=== PATIENT | female | born 1970 | race Caucasian/White ===

== ENCOUNTER 2017-10-03 09:26 | Emergency (ER) | payer SELFPAY, MEDICAID | END 2017-10-03 13:05 | disposition left against medical advice (07) | LOC: FTE 09:26 | DX: Z53.21 Procedure and treatment not carried out due to patient leaving prior to being seen by health care provider (principal) ==

== ENCOUNTER 2017-10-28 13:57 | Emergency (ER) | payer MEDICAID | END 2017-10-28 18:53 | disposition home or self-care (01) | LOC: FTE 13:57 | DX: L03.032 Cellulitis of left toe (principal); M79.674 Pain in right toe(s); L03.031 Cellulitis of right toe; Z85.3 Personal history of malignant neoplasm of breast | CPT/HCPCS: 99284; Z7502 ==

== ENCOUNTER 2017-11-14 20:51 | Emergency (ER) | payer MEDICAID ==
[2017-11-14 21:52] LABS: ADD UMIC YES; UR ASCORBIC ACID NEGATIVE (NEGATIVE); UR BILIRUBIN (Dip) NEGATIVE (NEGATIVE); UR BLOOD (Dip) 1+ mg/dL (NEGATIVE); UR CLARITY SLIGHTLY CLOUDY (CLEAR); UR COLOR RED (YELLOW); UR GLUCOSE (Dip) NEGATIVE (NEGATIVE); UR KETONES (Dip) NEGATIVE (NEGATIVE); UR LEUKOCYTE ESTERASE (Dip) TRACE Leu/ul (NEGATIVE); UR NITRITE (Dip) NEGATIVE (NEGATIVE); UR RBC 0 /HPF (0-5); UR SPECIFIC GRAVITY (Dip) 1.001 (1.003-1.030); UR SQUAMOUS EPITHELIAL CELL FEW /HPF (FEW); UR TOTAL PROTEIN (Dip) NEGATIVE (NEGATIVE); UR UROBILINOGEN (Dip) NEGATIVE (NEGATIVE); UR WBC 1 /HPF (0-5)
[2017-11-14 22:11] LABS: ADD MAN DIFF? NO
[2017-11-14 22:20] LABS: ABNORMAL IP MESSAGE 1; BASOPHILS % 0.4 % (0.0-2.0); EOSINOPHILS # 0.1 10^3/ul (0.0-0.5); HEMOGLOBIN 11.6 g/dl (12.0-16.0); LYMPHOCYTES # 0.4 10^3/ul (0.8-2.9); LYMPHOCYTES % 5.2 % (15.0-51.0); MEAN CORPUSCULAR HEMOGLOBIN 31.6 pg (29.0-33.0); MEAN CORPUSCULAR HGB CONC 35.2 g/dl (32.0-37.0); MEAN CORPUSCULAR VOLUME 89.9 fl (82.0-101.0); MONOCYTE # 0.5 10^3/ul (0.3-0.9); MONOCYTES % 7.1 % (0.0-11.0); NEUTROPHIL # 5.8 10^3/ul (1.6-7.5); PLATELET COUNT 191 10^3/UL (140-415); RED BLOOD COUNT 3.67 10^6/ul (4.20-5.40); RED CELL DISTRIBUTION WIDTH 12.1 % (11.5-14.5)
[2017-11-14 22:20] LABS: WHITE BLOOD COUNT 6.8 10^3/ul (4.8-10.8)
[2017-11-14] MEDS: SODIUM CHLORIDE 0.9% 1L BAG IV* (22:23)
[2017-11-14] MEDS: KETOROLAC 30 MG INJ IV (22:24)
[2017-11-14 22:34] LABS: POSITIVE DIFF @See below
[2017-11-14 22:39] LABS: INR 0.91; PROTIME 12.3 Sec (11.9-14.9)
[2017-11-14 22:40] LABS: PARTIAL THROMBOPLASTIN TIME 28.7 Sec (25.0-35.0)
[2017-11-14 22:41] LABS: ALANINE AMINOTRANSFERASE 101 IU/L (13-69); ALBUMIN 4.5 g/dl (3.3-4.9); ALBUMIN/GLOBULIN RATIO 1.45; ALKALINE PHOSPHATASE 119 IU/L (42-121); AMYLASE 73 U/L (11-123); ANION GAP 16 (8-16); ASPARTATE AMINO TRANSFERASE 99 IU/L (15-46); BILIRUBIN,INDIRECT 0.2 mg/dl (0-1.1); BILIRUBIN,TOTAL 0.2 mg/dl (0.2-1.3); BLOOD UREA NITROGEN 9 mg/dl (7-20); CALCIUM 9.4 mg/dl (8.4-10.2); CARBON DIOXIDE 27 mmol/L (21-31); CHLORIDE 106 mmol/L (97-110); CREATININE 0.47 mg/dl (0.44-1.00); GLUCOSE 108 mg/dl (70-220); LIPASE 133 U/L (23-300); POTASSIUM 3.7 mmol/L (3.5-5.1); SODIUM 145 mmol/L (135-144); TOTAL PROTEIN 7.6 g/dl (6.1-8.1)
[2017-11-14 22:48] LABS: LACTIC ACID 0.9 mmol/L (0.5-2.0)
[2017-11-14 22:53] LABS: TROPONIN-I < 0.012 ng/ml (0.00-0.12)
[2017-11-14] MEDS: SOD CHLORIDE 0.9% 100 ML (23:40)
[2017-11-14] MEDS: IOHEXOL 100 ML (23:40)
[2017-11-15] MEDS: SOD CHLORIDE 0.9% 1,000 ML IV (01:04)
== END 2017-11-15 02:49 | disposition home or self-care (01) ==
LOC: E/R 11-15 02:49
DX: R06.02 Shortness of breath (principal); M79.1 Myalgia; G44.209 Tension-type headache, unspecified, not intractable; N30.90 Cystitis, unspecified without hematuria; Z85.3 Personal history of malignant neoplasm of breast
CPT/HCPCS: 70450; 71045; 71275; 80053; 81001; 81025; 82150; 83605; 83690; 84484; 85025; 85610; 85730; 86850; 86900; 86901; 87040; 87086; 93005; 96374; 99285-25

== ENCOUNTER 2018-10-02 19:40 | Observation (INO) | payer MEDICAID ==
[2018-10-02 22:39] LABS: ADD MAN DIFF? NO
[2018-10-02 22:45] LABS: WHITE BLOOD COUNT 7.4 10^3/ul (4.8-10.8)
[2018-10-02 22:45] LABS: BASOPHIL # 0.1 10^3/ul (0.0-0.1); BASOPHILS % 0.7 % (0.0-2.0); EOSINOPHILS # 0.1 10^3/ul (0.0-0.5); EOSINOPHILS % 1.4 % (0.0-7.0); HEMATOCRIT 37.8 % (37.0-47.0); HEMOGLOBIN 12.7 g/dl (12.0-16.0); LYMPHOCYTES # 1.8 10^3/ul (0.8-2.9); LYMPHOCYTES % 23.8 % (15.0-51.0); MEAN CORPUSCULAR HEMOGLOBIN 31.2 pg (29.0-33.0); MEAN CORPUSCULAR HGB CONC 33.6 g/dl (32.0-37.0); MEAN CORPUSCULAR VOLUME 92.9 fl (82.0-101.0); MEAN PLATELET VOLUME 9.9 fl (7.4-10.4); MONOCYTE # 0.5 10^3/ul (0.3-0.9); PLATELET COUNT 253 10^3/UL (140-415); RED BLOOD COUNT 4.07 10^6/ul (4.20-5.40); RED CELL DISTRIBUTION WIDTH 11.9 % (11.5-14.5)
[2018-10-02 23:07] LABS: ANION GAP 9 (5-13); BLOOD UREA NITROGEN 12 mg/dl (7-20); CARBON DIOXIDE 28 mmol/L (21-31); CHLORIDE 103 mmol/L (97-110); CREATININE 0.53 mg/dl (0.44-1.00); Estimated GFR > 60 mL/min (>60); GLUCOSE 119 mg/dl (70-220); POTASSIUM 3.8 mmol/L (3.5-5.1); SODIUM 140 mmol/L (135-144)
[2018-10-02 23:18] LABS: B-TYPE NATRIURETIC PEPTIDE 20 PG/ML (0-125); TROPONIN-I 0.015 ng/ml (0.000-0.120)
[2018-10-02 23:42] LABS: D-DIMER < 220.00 ng/ml (<460)
[2018-10-03 01:05] LABS: TROPONIN-I 0.018 ng/ml (0.000-0.120)
[2018-10-03] MEDS: NITROGLYCERIN 2% 1 GM OINT PKT TD (02:57)
[2018-10-03] MEDS: ASPIRIN 325 MG TAB PO (02:57)
[2018-10-03] MEDS ORDERED: NACL 0.9% 3 ML SYG IV (03:00)
[2018-10-03] MEDS ORDERED: ONDANSETRON 4 MG TAB PO (03:00)
[2018-10-03] MEDS ORDERED: BISACODYL (EC) 5 MG TAB PO (03:00)
[2018-10-03] MEDS ORDERED: NITROGLYCERIN (SL) 0.4 MG TAB SL (03:00)
[2018-10-03] MEDS ORDERED: LORAZEPAM 2 MG INJ IV (03:00)
[2018-10-03] MEDS ORDERED: DOCUSATE SODIUM 100 MG CAP PO (03:00)
[2018-10-03 04:53] LABS: CREATINE KINASE 60 IU/L (23-200)
[2018-10-03 05:05] LABS: CK INDEX 0.8; TROPONIN-I < 0.012 ng/ml (0.000-0.120)
[2018-10-03 07:21] LABS: ADD MAN DIFF? NO
[2018-10-03 07:25] LABS: BASOPHILS % 0.9 % (0.0-2.0); EOSINOPHILS # 0.1 10^3/ul (0.0-0.5); EOSINOPHILS % 2.2 % (0.0-7.0); HEMATOCRIT 34.9 % (37.0-47.0); HEMOGLOBIN 11.8 g/dl (12.0-16.0); LYMPHOCYTES # 1.4 10^3/ul (0.8-2.9); MEAN CORPUSCULAR HEMOGLOBIN 31.5 pg (29.0-33.0); MEAN CORPUSCULAR HGB CONC 33.8 g/dl (32.0-37.0); MEAN CORPUSCULAR VOLUME 93.1 fl (82.0-101.0); MONOCYTE # 0.5 10^3/ul (0.3-0.9); MONOCYTES % 10.7 % (0.0-11.0); NEUTROPHIL # 2.4 10^3/ul (1.6-7.5); NEUTROPHILS % 54.2 % (39.0-77.0); PLATELET COUNT 232 10^3/UL (140-415); RED BLOOD COUNT 3.75 10^6/ul (4.20-5.40)
[2018-10-03 07:25] LABS: WHITE BLOOD COUNT 4.5 10^3/ul (4.8-10.8)
[2018-10-03 07:41] LABS: HEMOGLOBIN A1C 5.3 % (0-5.9)
[2018-10-03 07:45] LABS: CHOL/HDL RATIO 2.6 RATIO; HDL CHOLESTEROL 65 mg/dl (34-88); LDL CHOLESTEROL,CALCULATED 102 mg/dl; TRIGLYCERIDES 34 mg/dl (0-149)
[2018-10-03 07:45] LABS: CHOLESTEROL 174 mg/dl (100-200)
[2018-10-03 07:47] LABS: ALANINE AMINOTRANSFERASE 46 IU/L (13-69); ALBUMIN 4.1 g/dl (3.3-4.9); ALBUMIN/GLOBULIN RATIO 1.13; ALKALINE PHOSPHATASE 75 IU/L (42-121); ANION GAP 3 (5-13); ASPARTATE AMINO TRANSFERASE 32 IU/L (15-46); BILIRUBIN,INDIRECT 0.2 mg/dl (0-1.1); BILIRUBIN,TOTAL 0.2 mg/dl (0.2-1.3); BLOOD UREA NITROGEN 10 mg/dl (7-20); CALCIUM 9.3 mg/dl (8.4-10.2); CARBON DIOXIDE 29 mmol/L (21-31); CHLORIDE 107 mmol/L (97-110); CREATININE 0.49 mg/dl (0.44-1.00); Estimated GFR > 60 mL/min (>60); GLUCOSE 104 mg/dl (70-220); POTASSIUM 4.3 mmol/L (3.5-5.1); SODIUM 139 mmol/L (135-144); TOTAL PROTEIN 7.7 g/dl (6.1-8.1)
[2018-10-03 07:53] LABS: MAGNESIUM 2.2 mg/dl (1.7-2.5)
[2018-10-03] MEDS: ACETAMINOPHEN 325 MG TAB PO (10:22)
[2018-10-03 10:55] LABS: CREATINE KINASE 56 IU/L (23-200)
[2018-10-03 11:08] LABS: CK INDEX 0.7; CK-MB 0.37 ng/ml (0.0-2.4); TROPONIN-I < 0.012 ng/ml (0.000-0.120)
== END 2018-10-03 16:51 | disposition home or self-care (01) ==
LOC: E/R 19:40 → 6WM 10-03 02:16
DX: R07.89 Other chest pain (principal); Z78.0 Asymptomatic menopausal state; Z85.3 Personal history of malignant neoplasm of breast; Z90.12 Acquired absence of left breast and nipple; Z92.3 Personal history of irradiation; Z92.21 Personal history of antineoplastic chemotherapy
CPT/HCPCS: 36415; 71045; 80048; 80053; 80061; 81025; 82550; 82553; 83036; 83735; 83880; 84443; 84484; 85025; 85378; 93005; 93306; 99285-25; G0378